=== PATIENT | male | born 1945 | race Caucasian/White ===

== ENCOUNTER 2022-05-25 10:16 | Emergency (ER) | payer MEDICARE, BC | END 2022-05-25 13:38 | disposition home or self-care (01) | LOC: ERS 10:16 | DX: S80.11XA Contusion of right lower leg, initial encounter (principal); I10 Essential (primary) hypertension; W22.09XA Striking against other stationary object, initial encounter ==

== ENCOUNTER 2023-03-13 09:26 | Emergency (ER) | payer MEDICARE, BC ==
[2023-03-13] MEDS ORDERED: Cyclobenzaprine 10 MG TAB ONE (10:30)
[2023-03-13] MEDS ORDERED: predniSONE 20 MG TAB ONE (10:30)
== END 2023-03-13 11:01 | disposition home or self-care (01) ==
LOC: ERS 09:26
DX: M54.50 Low back pain, unspecified (principal); I10 Essential (primary) hypertension
CPT/HCPCS: 72100; 99283; J7512